=== PATIENT | male | born 1980 | race Caucasian/White ===

== ENCOUNTER 2017-09-05 03:26 | Emergency (ER) | payer OTHER ==
[~2017-09-05] VITALS: Ht 175.3 cm; Wt 117.9 kg
[2017-09-05 03:50] VITALS: BP_SYST 125
[2017-09-05] MEDS ORDERED: DIPH-TET Vacc 0.5 ML VIAL I.M. ONE (05:45)
[2017-09-05 06:08] VITALS: BP_SYST 118
== END 2017-09-05 06:08 | disposition home or self-care (01) ==
LOC: SED 03:26
DX: S61.412A Laceration without foreign body of left hand, initial encounter (principal); S50.812A Abrasion of left forearm, initial encounter; Y08.89XA Assault by other specified means, initial encounter; Y93.89 Activity, other specified; Y92.89 Other specified places as the place of occurrence of the external cause; Y99.8 Other external cause status
CPT/HCPCS: 90714; 99283